=== PATIENT | female | born 2005 | race Two or more races ===

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

== ENCOUNTER 2025-01-01 10:59 | Day surgery (SDC) | payer OTHER ==
[~2025-01-01] VITALS: Ht 167.6 cm; Wt 68.8 kg
[2025-01-01] MEDS ORDERED: LIDOCAINE W/EPINEPHrine 1% 20 ML VIAL XX ONE (11:25)
[2025-01-01] MEDS ORDERED: SODIUM BICARBONATE 8.4% INJ 50MEQ/50ML VIAL XX ONE (11:25)
[2025-01-01 15:10] VITALS: BP 108/79; TEMP 97.6; O2SAT 100
== END 2025-01-01 15:27 | disposition home or self-care (01) ==
LOC: M SDC 10:59
PROVIDERS: ATTEND Orthopaedic Surgery Hand Surgery
DX: M67.843 Other specified disorders of tendon, right hand (principal)